=== PATIENT | female | born 1965 | race Caucasian/White ===

== ENCOUNTER 2019-05-15 19:42 | Emergency (ER) | payer OTHER ==
--- NOTE | 2019-05-15 20:10 | PDOC ---
Rapid Medical Evaluation Time Seen by Provider: 05/15/19 20:08 Medical Evaluation: 05/15/19 20:10 I performed a brief in-person evaluation of this patient. Brought in by EMS intoxicated (although patient denies EtOH intake). Super called EMS after seeing patient stumble out of cab. Pertinent physical exam findings. Able to state first name only. Answers "three dollar bill" to all other questions. No sign of head trauma. Slurred speech. Moving all extremities. I have ordered the following: None Patient to proceed to ED for further evaluation. Discharge Disposition - Diagnosis Intoxication - Referrals - Patient Instructions - Post Discharge Activity
[2019-05-15 20:16] VITALS: TEMP 98.2; BMI 27.3
--- NOTE | 2019-05-15 21:16 | PDOC ---
History of Present Illness - General Chief Complaint: Alcohol intoxication Stated Complaint: INTOXICATED Time Seen by Provider: 05/15/19 20:08 - History of Present Illness Initial Comments: Elizabeth Bloom is a 54yo woman with an unknown medical history who presents with slurred speech and altered mental status. She is unable to provide history ; she states her name, yes, and no. She denies drinking today. Ms Bloom had a witnessed fall immediately following triage while in the ED and has a significant contusion on her right forehead. Past History - Past Medical History Allergies/Adverse Reactions: Allergies Allergy/AdvReac Type Severity Reaction Status Date / Time No Known Allergies Allergy Verified 05/15/19 20:16 COPD: No - Psycho Social/Smoking Cessation Hx Smoking History: Never smoked Have you smoked in the past 12 months: No Information on smoking cessation initiated: No Hx Alcohol Use: Yes Drug/Substance Use Hx: No Review of Systems - Review of Systems Comments:: Could not obtain, altered *Physical Exam - Vital Signs Last Vital Signs Temp Pulse Resp BP Pulse Ox 98.2 F 66 17 116/73 98 05/15/19 20:10 05/15/19 20:10 05/15/19 20:10 05/15/19 20:10 05/15/19 20:10 - Physical Exam General: Appears intoxicated. Urinated on self HEENT: Pupils equal, moves eyes equally but cannot follow, MMM. Large, prominent contusion on right forehead w/o bleeding Cards: RRR, no murmur appreciated Pulm: Comfortable on room air, clear to auscultation bilaterally Abd: Soft, nontender Ext: Atraumatic. No LE edema. Moves all extremities Skin: Normal color, no rashes or lesions Neuro: Awake. Responds inappropriately to questions with one-word answers ( Tru Johnson, yes, no). Slurred speech. Moves all extremities but unable to follow commands ED Treatment Course - LABORATORY CBC & Chemistry Diagram: 05/15/19 21:30 05/15/19 21:30 - RADIOLOGY Radiology Studies Ordered: Category Date Time Status HEAD CT WITHOUT CONTRAST [CT] Stat CT Scan 05/15/19 21:07 Ordered Medical Decision Making - Medical Decision Making 05/15/19 21:09 Elizabeth Bloom is a 54yo woman with an unknown medical history who presents with slurred speech and altered mental status. She is unable to provide history ; she states her name, yes, and no. She denies drinking today. Ms Bloom had a witnessed fall immediately following triage while in the ED and has a significant contusion on her right forehead. - Suspect intoxication, likely alcohol 05/15/19 22:24 - CT with right subgaleal hematoma but no other acute abnormalities - Labs pending 05/15/19 23:03 - Labs notable for alcohol level 340 - Will continue to monitor until clinically sober. Will discuss going to detox 05/16/19 01:03 - Pt trying to get out of bed. Will give 2mg ativan for safety, pt agitation 05/16/19 01:46 - Ambulating without difficulty through the ED. Appropriately conversational. Will discharge home as pt appears safe to discharge. Seen and discussed with Dr Patel Barbour PGY2 Discharge - Discharge Information Problems reviewed: Yes Clinical Impression/Diagnosis: Intoxication Condition: Stable Disposition: HOME - Admission No - Follow up/Referral - Patient Discharge Instructions Patient Printed Discharge Instructions: DI for Alcohol Abuse, DI for Closed Head Injury Additional Instructions: Discharge Instructions: You were seen in the emergency department for alcohol intoxication. You had a fall, and you have a large bump on your right forehead. You had a CT scan that did not show any brain bleed or broken bones. Continue to take any home medications that have been prescribed for you. It is strongly recommended that you go to detox for help with alcohol abuse. If you become unusually sleepy, confused, you have difficulty walking, you have changes to your speech, you have any one-sided weakness, or you have multiple episodes of vomiting (2 or more per hour for at least 2 hours), seek immediate medical care. - Post Discharge Activity
--- NOTE | 2019-05-15 21:18 | PDOC ---
Attending Attestation - Resident Resident Name: Radha Barbour - ED Attending Attestation I have performed the following: I have examined & evaluated the patient, The case was reviewed & discussed with the resident, I agree w/resident's findings & plan, Exceptions are as noted - HPI HPI: 05/15/19 22:14 See resident HPI - Physicial Exam PE: 05/15/19 22:14 Agree with exam as documented by resident - Medical Decision Making 05/15/19 22:14 54F unknown pmh slurred speech, positive AOB, endorses drinking "many beers" tonight Fell in triage with visible frontal hematoma f/u trauma imaging f/u labs if no trauma, no electrolyte derangement re-eval when clinically sober No intra-cranial pathology Ambulating with steady gait
[2019-05-15 22:05] LABS: BASO % 0.8 % (0-2.0); EOS % 7.5 % (0-4.5); HEMATOCRIT 42.2 % (32.4-45.2); HEMOGLOBIN 15.1 GM/dL (10.7-15.3); LYMPH % 33.6 % (8-40); MCH 33.1 pg (25.7-33.7); MCHC 35.7 g/dl (32.0-36.0); MEAN CELL VOLUME 92.9 fl (80-96); MONO % 4.7 % (3.8-10.2); NEUT % 53.4 % (42.8-82.8); PLATELET COUNT 298 K/MM3 (134-434); RBC 4.54 M/mm3 (3.60-5.2); RDW 12.5 % (11.6-15.6); WHITE BLOOD COUNT 6.2 K/mm3 (4.0-10.0)
[2019-05-15 22:46] LABS: ALBUMIN 4.2 g/dl (3.4-5.0); BILIRUBIN,TOTAL 0.1 mg/dL (0.2-1); BLOOD UREA NITROGEN 11.2 mg/dL (7-18); CALCIUM 8.7 mg/dL (8.5-10.1); CREATININE 0.8 mg/dL (0.55-1.3); POTASSIUM 3.7 mmol/L (3.5-5.1); TOT PROT 7.8 g/dl (6.4-8.2)
[2019-05-16] MEDS ORDERED: LORazepam 2 MG/ML SDV VIAL ONE (01:02)
[2019-05-16 01:10] VITALS: BP 126/56; PULSE 90
== END 2019-05-16 02:26 | disposition home or self-care (01) ==
LOC: JER 19:42
PROC: 3E033NZ Introduction of Analgesics, Hypnotics, Sedatives into Peripheral Vein, Percutaneous Approach (ICD-10-PCS; principal; 2019-05-15)
DX: F10.120 Alcohol abuse with intoxication, uncomplicated (principal); Y90.8 Blood alcohol level of 240 mg/100 ml or more; S00.83XA Contusion of other part of head, initial encounter; W19.XXXA Unspecified fall, initial encounter; Y93.89 Activity, other specified; Y92.238 Other place in hospital as the place of occurrence of the external cause; Y99.8 Other external cause status
CPT/HCPCS: 36415; 70450-TC; 80053; 80307; 85025; 99283-25